=== PATIENT | male | born 1975 | race Caucasian/White ===

== ENCOUNTER 2016-11-23 20:32 | Emergency (ER) | payer OTHER ==
[~2016-11-23] VITALS: Ht 182.8 cm; Wt 77.1 kg
[~2016-11-23 20:32] MED LIST: ANAPROX DS550 MG PO; BACTRIM DS 8001 TA1 PO; BENADRYL50 MG PO; CLARITIN10 MG PO; DAYPRO600 M1 PO; DOXYCYCLINE MO100 MG PO; FLEXERIL10 MG PO; KEFLEX500 MG PO; KENALOG0.1% TP; MEDROL DOSEPAK4 MG PO; MOBIC15 MG PO; MOTRIN800 MG PO; NAPROXEN PO; NEXIUM40 MG PO; NORCO 325 MG-51 TAB PO; NORFLEX100 MG PO; PHENERGAN W/DM120 ML PO; PREDNICOT20 MG PO; PRILOSEC40 MG PO; PROVENTIL0.09 MG/AC IH; SEROQUEL200 MG PO; SKELAXIN800 MG PO; TESSALON PERLE200 MG PO; ULTRAM50 MG PO; VICODIN 5/500 505 MG PO; Vicodin 5/500 505 MG PO; ZITHROMAX Z PA250 MG PO; ZOFRAN ODT4 MG SL; ZYRTEC10 MG PO
[2016-11-23] MEDS ORDERED: METHOTREXATE2.5 M1 PO (20:58)
[2016-11-23] MEDS ORDERED: ANAPROX DS550 MG PO (22:36)
== END 2016-11-23 21:01 | disposition home or self-care (01) ==
LOC: ED 20:32
DX: S93.601A Unspecified sprain of right foot, initial encounter (principal); F17.200 Nicotine dependence, unspecified, uncomplicated; W17.2XXA Fall into hole, initial encounter; Y93.01 Activity, walking, marching and hiking; Y92.89 Other specified places as the place of occurrence of the external cause; Y99.8 Other external cause status

== ENCOUNTER → 2017-04-23 | Outpatient (CLI) | payer OTHER ==
[~2017-04-23] MED LIST changes: +METHOTREXATE2.5 M1 PO
== END | disposition home or self-care (01) ==
LOC: CT 02:57
DX: R31.9 Hematuria, unspecified (principal); R82.99 Other abnormal findings in urine; M54.5 Low back pain

== ENCOUNTER → 2017-04-30 | Outpatient (CLI) | payer SELFPAY ==
[2017-04-30 12:29] LABS: BASO # 0.1 10*3/uL (0.0-0.1); BASO % 0.6 % (0.0-1.0); EOS # 0.1 10*3/uL (0.0-0.4); EOS % 0.4 % (1.0-4.0); HEMATOCRIT 41.5 % (42.0-52.0); HEMOGLOBIN 13.7 g/dl (14.0-18.0); LYMPH # 1.4 10*3/uL (1.3-4.4); MEAN CELL VOLUME 89.6 fl (80.0-94.0); MEAN CORPUSCULAR HGB 29.6 pg (27.0-31.0); MEAN PLATELET VOLUME 9.9 fl (9.6-12.3); MONO # 0.4 10*3/uL (0.1-1.0); MONO % 3.4 % (3.0-9.0); NEUT # 9.5 10*3/uL (2.3-7.9); NEUT % 83.2 % (47.0-73.0); PLATELET COUNT AUTOMATED 399 10*3/uL (130-400); RED BLOOD COUNT 4.63 10*6/uL (4.50-5.90); RED CELL DISTRI WIDTH 13.2 % (0-14.5); WHITE BLOOD COUNT 11.4 10*3/uL (4.8-10.8)
[2017-04-30 13:04] LABS: ALBUMIN 3.3 gm/dl (3.1-4.5); BUN 13 mg/dl (7-24); CHLORIDE 105 mmol/L (98-107); POTASSIUM 4.7 mmol/L (3.5-5.1); SGPT/ALT 20 U/L (12-78); SODIUM 137 mmol/L (136-145)
[2017-04-30 13:05] LABS: ACT PARTIAL THROMBO TIME 24.4 SECONDS (20.8-31.5)
[2017-04-30 13:07] LABS: ALKALINE PHOSPHATASE 207 U/L (45-117); CREATININE 0.84 mg/dL (0.70-1.30); SGOT/AST 9 IU/L (3-35); TOTAL PROTEIN 7.6 gm/dL (6.4-8.2)
== END | disposition home or self-care (01) ==
LOC: LAB 12:00
PROVIDERS: Urology
DX: R31.9 Hematuria, unspecified (principal)

== ENCOUNTER 2017-07-17 18:50 | Emergency (ER) | payer OTHER ==
[~2017-07-17] VITALS: Wt 86.2 kg
[2017-07-17] MEDS ORDERED: PREDNISONE5 MG PO (19:22)
[2017-07-17 19:29] LABS: BASO # 0.1 10*3/uL (0.0-0.1); BASO % 0.9 % (0.0-1.0); EOS # 0.3 10*3/uL (0.0-0.4); EOS % 2.4 % (1.0-4.0); HEMATOCRIT 44.2 % (42.0-52.0); LYMPH # 2.6 10*3/uL (1.3-4.4); LYMPH % 22.6 % (27.0-41.0); MEAN CELL VOLUME 84.7 fl (80.0-94.0); MEAN CORPUSCULAR HGB 28.7 pg (27.0-31.0); MEAN CORPUSCULAR HGB CONC 33.9 g/dl (33.0-37.0); MEAN PLATELET VOLUME 10.1 fl (9.6-12.3); MONO # 0.8 10*3/uL (0.1-1.0); MONO % 7.3 % (3.0-9.0); NEUT # 7.7 10*3/uL (2.3-7.9); NEUT % 66.5 % (47.0-73.0); PLATELET COUNT AUTOMATED 500 10*3/uL (130-400); RED BLOOD COUNT 5.22 10*6/uL (4.50-5.90); RED CELL DISTRI WIDTH 13.7 % (0-14.5); WHITE BLOOD COUNT 11.6 10*3/uL (4.8-10.8)
[2017-07-17 19:46] LABS: ALBUMIN 3.4 gm/dl (3.1-4.5); ALKALINE PHOSPHATASE 179 U/L (45-117); BUN 9 mg/dl (7-24); CHLORIDE 104 mmol/L (98-107); CREATININE 0.93 mg/dL (0.70-1.30); PHOSPHOROUS 2.7 mg/dL (2.5-4.9); SGOT/AST 14 IU/L (3-35); SGPT/ALT 25 U/L (12-78); SODIUM 138 mmol/L (136-145); TOTAL PROTEIN 7.9 gm/dL (6.4-8.2)
[2017-07-17 19:47] LABS: TROPONIN I < 0.015 ng/ml (<0.045)
[2017-07-17] MEDS ORDERED: GOOD NEIGHBOR M25 M1 PO (20:53)
[2017-07-17] MEDS ORDERED: CHLORASEPTIC M1 EACH MM (20:53)
== END 2017-07-17 20:55 | disposition home or self-care (01) ==
LOC: ED 18:50
PROVIDERS: Student in an Organized Health Care Education/Training Program
DX: R42 Dizziness and giddiness (principal); J06.9 Acute upper respiratory infection, unspecified; J44.1 Chronic obstructive pulmonary disease with (acute) exacerbation; G89.29 Other chronic pain; F17.200 Nicotine dependence, unspecified, uncomplicated; Z79.899 Other long term (current) drug therapy

== ENCOUNTER 2023-02-26 17:27 | Emergency (ER) | payer OTHER ==
[~2023-02-26] VITALS: Ht 180.3 cm; Wt 85.3 kg
[~2023-02-26 17:27] MED LIST changes: +CHLORASEPTIC M1 EACH MM; +GOOD NEIGHBOR M25 M1 PO; +PREDNISONE5 MG PO
[2023-02-26] MEDS ORDERED: ONDANSETRON4 MG SL (19:16)
== END 2023-02-26 19:27 | disposition home or self-care (01) ==
LOC: ED 17:27
DX: B34.9 Viral infection, unspecified (principal); R11.2 Nausea with vomiting, unspecified; R19.7 Diarrhea, unspecified; Z79.899 Other long term (current) drug therapy